=== PATIENT | female | born 1970 | race Caucasian/White ===

== ENCOUNTER 2021-07-03 19:09 | Emergency (ER) | payer MEDICAID ==
--- NOTE | 2021-07-03 19:28 | ED Physician Documentation ---
History of Present Illness - Stated complaint Stated Complaint: POST OP BLEEDING - Chief complaint Chief Complaint: Trauma Ext - History obtained from History obtained from: Patient, EMS - History of Present Illness Timing: Today Pain level max: 0 Pain level now: 0 - Additonal information Additional information: Patient is a 51-year-old female who is brought in by EMS for bleeding in her postoperative bandages. She was discharged from [facility] in [place] yesterday after a open tib[place]fib [place]. She states that tonight they noticed blood on the bandages, called 911 and the patient was brought here for evaluation. Nothing makes it better or worse Review of Systems Constitutional: denies: Fever, Chills GI: denies: Vomiting, Diarrhea Skin: denies: Rash Musculoskeletal: denies: Neck pain, Back pain Neurologic: denies: Headache PD PAST MEDICAL HISTORY - Past Medical History Past Medical History: Yes Cardiovascular: Hypertension, High cholesterol, NC, Other Endocrine/Autoimmune: Type 2 diabetes GI: GERD : Chronic bladder infection HEENT: Other - Past Surgical History Past Surgical History: Yes Ortho: Arthroscopic surgery /[employer]: Tubal ligation, Breast reduction - Present Medications Home Medications: Ambulatory Orders Medication Instructions Recorded Confirmed Insulin Detemir [Levemir] 55 unit SUBQ BID 07/05/13 07/03/21 Insulin Lispro [Humalog] 40 unit SQ TID 07/05/13 07/03/21 Citalopram [CeleXA] 40 mg PO DAILY 07/06/13 07/03/21 Furosemide 20 mg PO DAILY 07/06/13 07/03/21 Metropolol 75 ea ORAL BID 07/06/13 07/03/21 Minocycline [Minocycline HCl] 100 mg PO DAILY 07/06/13 07/03/21 Omeprazole 40 mg PO DAILY 07/06/13 07/03/21 Simvastatin 80 mg PO DAILY 07/06/13 07/06/13 - Allergies Allergies/Adverse Reactions: Allergies Allergy/AdvReac Type Severity Reaction Status Date / Time No Known Drug Allergies Allergy Verified 07/03/21 19:12 - Social History Does the pt smoke?: Yes Smoking Status: Current every day smoker Does the pt drink ETOH?: No Does the pt have substance abuse?: No - Immunizations Immunizations are current?: Yes PD ED PE NORMAL - Vitals Vital signs reviewed: Yes - General General: Alert and oriented X 3, No acute distress - HEENT HEENT: PERRL, Moist mucous membranes - Neck Neck: Supple, no meningeal sign - Cardiac Cardiac: RRR, Strong equal pulses - Respiratory Respiratory: No respiratory distress, Clear bilaterally - Abdomen Abdomen: Soft, Non tender, Non distended - Derm Derm: Warm and dry - Extremities Extremities: Other (Left lower leg, bandages removed. Incisions are clean dry and intact with the exception of the inner aspect of the left lower leg, there is a small amount of bleeding there. No dehiscence. No signs of infection.) - Neuro Neuro: Alert and oriented X 3 - Psych Psych: Normal mood, Normal affect Results - Vitals Vitals: Vital Signs - 24 hr 07/03/21 07/03/21 19:12 19:43 Temperature 36.5 C 36.5 C Heart Rate 89 88 Respiratory 15 16 Rate Blood Pressure 117/71 115/70 O2 Saturation 94 95 Oxygen O2 Source Room air PD MEDICAL DECISION MAKING - ED course Complexity details: considered differential, d/w patient ED course: Patient with what appears to have been a postoperative seroma. The leg was cleansed and rebandaged. New bandaging supplies were sent with the patient as well. No signs of infection. We will have her follow-up with orthopedics for further care. Discussed the case with Dr. Kirk, orthopedics on-call at [facility] who will pass on the message to Dr. Vernon. Patient counseled regarding signs and symptoms for which I believe and urgent re- evaluation would be necessary. Patient with good understanding of and agreement to plan and is comfortable going home at this time This document was made in part using voice recognition software. While efforts are made to proofread this document, sound alike and grammatical errors may occur. Departure - Departure Disposition: 01 Home, Self Care Clinical Impression: Postoperative seroma Qualifiers: Surgical complication system/body Area: subcutaneous tissue Procedure type: non-dermatologic Qualified Code(s): L76.34 - Postprocedural seroma of skin and subcutaneous tissue following other procedure Condition: Good Instructions: ED Seroma Post Op Follow-Up: Emil Vernon MD [Physician No Access] - Within 1 week Comments: Your wound does not appear infected. The incisions are intact. You likely had a small seroma that ruptured, causing the bleeding. Keep the wound clean. Return if you worsen. Follow-up with orthopedics for further care
[2021-07-03 19:44] VITALS: BP 115/70
== END 2021-07-03 20:01 | disposition home or self-care (01) ==
LOC: ED 19:09
DX: L76.34 Postprocedural seroma of skin and subcutaneous tissue following other procedure (principal); Z98.890 Other specified postprocedural states; I10 Essential (primary) hypertension; E11.9 Type 2 diabetes mellitus without complications; Z79.4 Long term (current) use of insulin; F17.200 Nicotine dependence, unspecified, uncomplicated
CPT/HCPCS: 99282; 99283

== ENCOUNTER 2021-07-03 19:46 | Outpatient (CLI) | payer MEDICAID | END 2021-07-03 19:47 | disposition critical access hospital (66) | LOC: EMS 19:46 | DX: R58 Hemorrhage, not elsewhere classified (principal) | CPT/HCPCS: A0425; A0429; A0999 ==